=== PATIENT | female | born 1990 | race Caucasian/White ===

== ENCOUNTER 2017-08-09 06:30 | Day surgery (SDC) | payer MEDICAID, OTHER ==
[~2017-08-09] VITALS: Ht 162.6 cm; Wt 89.4 kg
[2017-08-09] MEDS ORDERED: GABAPENTIN (08:40)
[2017-08-09] MEDS ORDERED: NORCO (08:40)
[2017-08-09 08:42] VITALS: Ht 162.6 cm; Wt 89.4 kg
[2017-08-09 08:52] VITALS: BP 106/55; PULSE 68; RESP 18
[2017-08-09] MEDS ORDERED: LIDOCAINE 2% (SDV) 5 ML INJ ONE (09:09)
[2017-08-09] MEDS ORDERED: PROPOFOL 40 ML ONE (09:09)
--- NOTE | 2017-08-09 09:33 | OPPN ---
Date/Time of Note Date/Time of Note DATE: 08/09/17 TIME: 09:32 Operative Report Preoperative Diagnosis Abdominal pain Chronic heartburn Postoperative Diagnosis Gastroesophageal reflux disease Gastritis with erosions Operation/Procedure Performed Esophagogastroduodenoscopy and biopsy Surgeon see signature line faculty i on call medical assistant None Anesthesia: MAC Estimated blood loss: none Transfusion Required none Specimen Gastric mucosal biopsy Grafts/Implants none Complications none MARTA RICHARDSON MD Aug 09, 2017 09:33
--- NOTE | 2017-08-09 09:33 | OPPN ---
Date/Time of Note Date/Time of Note DATE: 08/09/17 TIME: 09:32 Operative Report Preoperative Diagnosis Abdominal pain Chronic heartburn Postoperative Diagnosis Gastroesophageal reflux disease Gastritis with erosions Operation/Procedure Performed Esophagogastroduodenoscopy and biopsy Surgeon see signature line events assistant None Anesthesia: MAC Estimated blood loss: none Transfusion Required none Specimen Gastric mucosal biopsy Grafts/Implants none Complications none MARTA RICHARDSON MD Aug 09, 2017 09:33
--- NOTE | 2017-08-09 09:33 | OPPN ---
Date/Time of Note Date/Time of Note DATE: 08/09/17 TIME: 09:32 Operative Report Preoperative Diagnosis Abdominal pain Chronic heartburn Postoperative Diagnosis Gastroesophageal reflux disease Gastritis with erosions Operation/Procedure Performed Esophagogastroduodenoscopy and biopsy Surgeon see signature line licensed investment sales assistant None Anesthesia: MAC Estimated blood loss: none Transfusion Required none Specimen Gastric mucosal biopsy Grafts/Implants none Complications none MARTA RICHARDSON MD Aug 09, 2017 09:33
--- NOTE | 2017-08-09 09:50 | GILP ---
DATE OF PROCEDURE: NAME OF PROCEDURES: Esophagogastroduodenoscopy and biopsy. SURGEON: Marta Cunningham MD PREOPERATIVE DIAGNOSES: 1. Abdominal pain. 2. Chronic heartburn. POSTOPERATIVE DIAGNOSES: 1. Gastroesophageal reflux disease. 2. Gastritis with erosions. 3. Gastric mucosal biopsies were taken for Helicobacter pylori test. INDICATION FOR THE PROCEDURE: Ms. Daylin De La Torre is a 26-year-old female patient who had upper abdomin al pain and chronic heartburn, not responding to therapy. The patient was scheduled for endoscopic examination for further evaluation. The procedure and possible complications were well explained to the patient. The patient understood and consented to the procedure. DESCRIPTION OF PROCEDURE: Under the influence of anesthesia, the gastroscope was carefully introduc ed into the esophagus and under direct vision it was advanced to the stomach and through the pylorus into the duodenal bulb and descending duodenum. FINDINGS: ESOPHAGUS: The patient had gastroesophageal reflux disease. STOMACH: She had gastritis with erosions. Gastric mucosal biopsies were taken for H. pylori test. DUODENUM: Normal. She tolerated the procedure very well and there was no complication from the procedure. At the end of the procedure, she was awake with stable vital signs and she was discharged home to the care of h family. IMPRESSION: Please see postoperative diagnosis. PLAN: 1. Omeprazole 40 mg p.o. q.a.m. 2. Bentyl 10 mg p.o. t.i.d. p.r.n. for pain. 3. Await Helicobacter pylori test report. Dictated By: MARTA ROE/DORIAN Conf#: [id number] DID#: [id number]
[2017-08-09 09:53] VITALS: BP 112/57; PULSE 51; RESP 14
--- NOTE | 2017-08-10 09:29 | CONS ---
DATE OF ADMISSION: 08/09/2017 DATE OF CONSULTATION: Dear Dr. Christiansno: I thank you very much for this kind referral. Ms. Daylin De La Torre is a 26-year-old female patient who h as been referred to me for further evaluation of upper abdominal pain and chronic heartburn, not res ponding to therapy with omeprazole. She also complains of nausea and vomiting. Patient went to the emergency room and she had abdominal ultrasound and CT scan done and they were normal. She is not taking any nonsteroidal anti-inflammatory agents. No history of gallstones or liver disease. No ch gregg in the bowel habit or rectal bleeding. Not hypertensive or diabetic. No heart disease or lung problem. No kidney disease. The patient is status post back surgery and she is on [place] and gabap entin. SOCIAL HISTORY: Smokes marijuana. No alcohol abuse. FAMILY HISTORY: No family history of gastrointestinal tract neoplasm. ALLERGIES: NO DRUG ALLERGIES. MEDICATIONS: 1. Omeprazole. 2. [place]. 3. Gabapentin. PHYSICAL EXAMINATION: GENERAL: She is 5 feet 4 inches tall and she weighs 190 pounds. HEART: Examination of the heart reveals normal first and second heart sounds. LUNGS: Clear. ABDOMEN: Soft. No masses. Epigastric tenderness. Normal bowel sounds. NEUROLOGIC: Normal exam. IMPRESSION: 1. Upper abdominal pain and chronic heartburn associated with nausea and vomiting. The patient has been taking omeprazole without relief. She had abdominal ultrasound and CT scan done and they were normal. 2. Degenerative joint disease of the back and status post back surgery. The patient is on [place]. 3. The patient smokes marijuana. PLAN: 1. Endoscopic examination for further evaluation. 2. Because of the use of marijuana and [place], she will be resistant to narcotics and she needs giovana tored anesthesia care. The procedure and possible complications are well explained to the patient. She understands and con sents to the procedure. I thank you once again. With warmest personal regards, Dictated By: MARTA ROE/DORIAN Conf#: [id number] DID#: [id number]
== END 2017-08-09 10:31 | disposition home or self-care (01) ==
LOC: GIL 06:30
PROVIDERS: ATTEND Internal Medicine Gastroenterology
DX: K21.9 Gastro-esophageal reflux disease without esophagitis (principal); K29.60 Other gastritis without bleeding; E66.01 Morbid (severe) obesity due to excess calories; Z68.33 Body mass index [BMI] 33.0-33.9, adult
CPT/HCPCS: 43239; 84703; 87081; Z7610